=== PATIENT | female | born 1985 | race Caucasian/White ===

== ENCOUNTER 2022-07-27 09:39 | Emergency (ER) | payer MEDICAID ==
[~2022-07-27] VITALS: Ht 165.1 cm; Wt 79.4 kg
[2022-07-27 11:25] VITALS: BP_SYST 114
--- NOTE | 2022-07-27 11:32 | NUR ---
Patient triaged and placed in waiting room. VSS and patient appears in no acute distress at this time. Accompanied by SON, awaiting available bed, and MD notified of need for MSE.
== END 2022-07-27 12:33 | disposition left against medical advice (07) ==
LOC: SED 09:39
DX: M25.571 Pain in right ankle and joints of right foot (principal); Z53.21 Procedure and treatment not carried out due to patient leaving prior to being seen by health care provider